=== PATIENT | female | born 1950 | race Caucasian/White ===

== ENCOUNTER 2023-02-01 12:31 | Outpatient (RCR) | payer MEDICARE, BC, SELFPAY ==
--- NOTE | 2023-02-01 14:00 | OTOPDC ---
Assessment and note entered by RICHMOND Lane/Carlos, CHT Evaluation Information Assessment Status Evaluation Diagnosis MS Onset Diagnosed 2008 Subjective Information Patient reports she was having falls when she got diagnosed, but reports she's doing well now, in remission. She lives at home with her . She reports he helps her with opening items due to having weak hands. She reports her also has MS. She has an incumbent bike that she tries to ride daily. She presents today interested in finding adaptive equipment to make everyday tasks easier. Reported Pain Level Pain Score 0: Self Report Assessment OT Clinical Summary Patient referred to outpatient OT with dx of MS. She presents with questions about adaptive equipment and techniques for ADLs. Discussed and demonstrated a variety of equipment. She trialed the equipment and was provided education on where to purchase. She is happy with this education and declines need for further follow up. Discharging from OT services. Plan of Care OT Services Indicated No
== END 2023-02-01 14:16 | disposition home or self-care (01) ==
LOC: ANHOT 12:31
PROVIDERS: PCP Internal Medicine; Visit Provider Psychiatry & Neurology Neurology
DX: G35 Multiple sclerosis (principal)
CPT/HCPCS: 97165; 97535

== ENCOUNTER 2023-10-12 14:00 | Outpatient (RCR) | payer MEDICARE, BC, SELFPAY ==
--- NOTE | 2023-09-07 13:57 | PTOPEVAL1 ---
Assessment and note entered by Diony Luna Evaluation Information Assessment Status Evaluation Diagnosis high fall risk, kyphosis Onset 07/11/23 Subjective Information Pt. reports that last time she was at the neurologist the doctor expressed concern with her walking. She reports she has not had a fall in 3 years. She is currently using a cane for ambulation. 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 She reports that about 15 years ago she was diagnosed with MS, relapsing remitting. She states that she has been fatigued lately. She is noticing that she has less energy. She states that she has not been as active lately, but does state that weather is playing a part. She states that she is not doing any formal exercise at this time. She states that she is retired, and keeps herself busy with household duties and staying in touch with friends. She states that she has also developed mid back pain recently. She states that her posture has been declining and states that she is noticing she is becoming more forward. She states that her doctor noticed the increase in her kyphosis. She reports that her goal is to improve her strength and endurance, as well as improve her posture. Reported Pain Level Pain Score 0: Self Report Assessment PT Clinical Summary Pt. is a 73 year old female who enters the clinic due to elevated fall risk and increased thoracic kyphosis. She presents with impaired postural awareness, moderate fall risk, impaired proximal u .e. and l.e. strength and pain on this date. Continued skilled PT is indicated in order to improve these areas to allow the pt. to be able to complete all IADL's with improved safety and comfort. Plan of Care Interventions Electrical Stimulation,Hot Pack/Cold Pack,Manual Therapy,Neuro Re-education,Patient/Caregiver Educati,Therapeutic Activities,Therapeutic Exercise,Self-Care/Home Management PT Services Indicated Yes Treatment Frequency and 2x/week x 10 visits Duration These treatments will address the objective and functional deficits as defined above. The patient will be advanced safely and appropriately in order for the patient to progress towards his/her prior level of function. Additional exercises will be introduced and as well as a comprehensive home exercise program upon discharge, if
--- NOTE | 2023-09-07 14:00 | OPREHPOC ---
Outpatient Therapy Plan of Care This is a Multidisciplinary Plan of Care that may contain components documented by all disciplines (PT, OT, and ST.) PT Problem 1 PT Problem #1 Knowledge Deficit PT Goal 1 Goal Independent with a HEP addressing strength and postural awareness Target Visit 2 PT Problem 2 PT Problem #2 Impaired Balance PT Goal 1 Goal Pt. will improve her Tinetti score to 24 or greater indicating low fall risk. Target Visit 10 PT Problem 3 PT Problem #3 Impaired Strength PT Goal 1 Goal Pt. will demonstrates gross l.e. strength at 4+/5 Pt. will demonstrate 4+/5 gross proximal u.e. strength Target Visit 10
--- NOTE | 2023-09-21 15:17 | PCPTNOTE ---
Patient no call no show for today's appointment.
--- NOTE | 2023-09-28 13:56 | PCPTNOTE ---
Pt cancelled due to working out this morning and is now too tired to come.
--- NOTE | 2023-09-29 14:48 | PCPTNOTE ---
Pt NS visit today
--- NOTE | 2023-10-03 14:58 | PCPTNOTE ---
Pt stated she forgot she had an appt. today.
--- NOTE | 2023-10-12 14:59 | PTOPDC ---
Assessment and note entered by Diony Luna Evaluation Information Assessment Status Discharge Diagnosis high fall risk, kyphosis Onset 07/11/23 Subjective Information Pt. reports that she has been very busy and unable to attend therapy. She states that she is continuing to exercise at home and would like to be discharged. She states that she is continue to do her HEP daily. Reported Pain Level Pain Score 0: Self Report Assessment PT Clinical Summary Pt. is independent with her current HEP. She demonstrates low fall risk with the Tinetti. She has had difficulty attending treatment and request discharge at this time. Plan of Care PT Services Indicated No
== END 2023-10-12 15:07 | disposition home or self-care (01) ==
LOC: ANHPT 14:00
PROVIDERS: PCP Internal Medicine
DX: M40.209 Unspecified kyphosis, site unspecified (principal); Z91.81 History of falling
CPT/HCPCS: 97110; 97112; 97161; 97530; 99199